=== PATIENT | female | born 1950 | race Caucasian/White ===

== ENCOUNTER → 2020-05-31 | Outpatient (CLI) | payer MEDICARE | LOC: RAD 11:27 | PROVIDERS: ATTEND Family Medicine | DX: M06.9 Rheumatoid arthritis, unspecified (principal) ==

== ENCOUNTER → 2020-10-30 | Emergency (ER) | payer MEDICARE ==
[~2020-10-30] VITALS: Ht 157.5 cm; Wt 92.1 kg
[~2020-10-30] MED LIST: DEXAMETHASONE SOD PHOS 10 MG/1 ML VIAL IM ONE; HYDROCODONE/APAP 5MG-325MG TAB PO ONE; LIDOCAINE 4% PATCH TP ONE
[2020-10-30 09:29] LABS: CLARITY,URINE CLEAR (CLEAR); COLOR,URINE YELLOW (YELLOW)
[2020-10-30 09:30] LABS: KETONES,URINE NEGATIVE (NEGATIVE); LEUKOCYTE ESTERASE ,URINE TRACE (NEGATIVE); NITRITE,URINE NEGATIVE (NEGATIVE); PROTEIN,URINE DIPSTICK NEGATIVE (NEGATIVE); URINE UROBILINOGEN 0.2 mg/dL (0.2 - 1)
[2020-10-30 09:39] LABS: BACTERIA,URINE FEW /HPF; EPITHELIAL CELLS,URINE MANY /LPF; TRANSITIONAL EPI CELLS,URINE MODERATE; WBC,URINE (MAN) 0-5 /HPF (0-5)
== END | disposition home or self-care (01) ==
LOC: ER 09:34
DX: M54.42 Lumbago with sciatica, left side (principal); I10 Essential (primary) hypertension; E11.9 Type 2 diabetes mellitus without complications; M06.9 Rheumatoid arthritis, unspecified
CPT/HCPCS: 81001; 87086; 99283; J1100

== ENCOUNTER → 2020-11-15 | Outpatient (CLI) | payer MEDICARE | LOC: MRI 10:04 | PROVIDERS: ATTEND Family Medicine | DX: M54.16 Radiculopathy, lumbar region (principal) | CPT/HCPCS: 72148 ==

== ENCOUNTER → 2020-11-30 | Outpatient (CLI) | payer MEDICARE | LOC: US 08:44 | PROVIDERS: ATTEND Family Medicine | DX: N28.1 Cyst of kidney, acquired (principal) | CPT/HCPCS: 76770 ==

== ENCOUNTER 2021-04-22 13:21 | Emergency (ER) | payer MEDICARE ==
[~2021-04-22] VITALS: Ht 157.5 cm; Wt 92.1 kg
[2021-04-22] MEDS ORDERED: GLIMEPIRIDE4 MG (13:39)
[2021-04-22] MEDS ORDERED: NOVOLIN 70100 UNIT/3 (13:39)
[2021-04-22] MEDS ORDERED: METOPROLOL SUCC50 MG (13:39)
[2021-04-22] MEDS ORDERED: ATORVASTATIN CA20 MG (13:39)
[2021-04-22] MEDS ORDERED: METHOTREXATE2.5 MG (13:39)
[2021-04-22] MEDS ORDERED: METFORMIN HCL1000 MG (13:39)
[2021-04-22] MEDS ORDERED: LISINOPRIL40 MG (13:39)
[2021-04-22] MEDS ORDERED: KETOROLAC TROMETHAMINE 60 MG/2 ML VIAL ONE (13:52)
[2021-04-22] MEDS ORDERED: HYDROCODONE/APAP 5MG-325MG TAB ONE (13:52)
[2021-04-22] MEDS ORDERED: HYDROCODON-ACE1 EA11 PO (14:04)
[2021-04-22] MEDS ORDERED: KETOROLAC TROMETHAMINE 60 MG/2 ML VIAL IM ONE (14:30)
[2021-04-22] MEDS ORDERED: HYDROCODONE/APAP 5MG-325MG TAB PO ONE (14:30)
== END 2021-04-22 14:20 | disposition home or self-care (01) ==
LOC: ER 13:31
DX: M54.32 Sciatica, left side (principal); I10 Essential (primary) hypertension; E11.9 Type 2 diabetes mellitus without complications; M06.9 Rheumatoid arthritis, unspecified
CPT/HCPCS: 99283; J1885